=== PATIENT | male | born 1955 | race Hispanic/Latino ===

== ENCOUNTER 2017-01-20 13:31 | Emergency (ER) | payer SELFPAY ==
[2017-01-20] MEDS ORDERED: Milk Of Magnesia 30 ML UDCUP ONE (14:21)
[2017-01-20] MEDS ORDERED: Lidocaine Viscous Sol 2% 15 ml UD Cup ONE (14:21)
[2017-01-20 14:33] LABS: #Basophils 0.1 thou/uL (0.0-0.2); #Eosinphils 0.9 thou/uL (0.0-0.7); #Lymphocytes 1.4 thou/uL (1.20-3.40); #Monocytes 0.8 thou/uL (0.11-0.59); %Basophils 0.8 % (0.0-1.0); %Eosinophils 9.7 % (0.0-10.0); %Lymphocytes 15.1 % (21.0-51.0); %Monocytes 8.6 % (0.0-10.0); Red Blood Cell (RBC) Count 5.03 mill/uL (4.70-6.10); White Blood Cell (WBC) Count 9.1 thou/uL (4.8-10.8)
[2017-01-20 14:49] LABS: ALT (SGPT) 177 U/L (8-55); AST (SGOT) 117 U/L (5-34); Alkaline Phosphatase 406 U/L (40-150); Anion Gap 16 mmol/L (10-20); BUN (Urea Nitrogen) 23 mg/dL (8.4-25.7); Bilirubin, Total 1.7 mg/dL (0.2-1.2); CK (CPK) 100 U/L (30-200); Calc. Creatinine Clearance 0 mL/min (70-130); Calcium 9.8 mg/dL (7.8-10.44); Carbon Dioxide 24 mmol/L (23-31); Chloride 102 mmol/L (98-107); Estimated GFR-MDRD 70; Globulin 4.3 g/dL (2.4-3.5); Lipase 51 U/L (8-78); Protein, Total 8.1 g/dL (5.8-8.1)
[2017-01-20 14:49] LABS: Troponin I Less than 0.010 ng/mL (< 0.028)
--- NOTE | 2017-01-20 15:36 | RAD ---
ACUTE ABDOMINAL SERIES: 01/20/17 INDICATION: Epigastric abdominal pain. COMPARISON: None. FINDINGS: There is a small right pleural effusion with right basilar atelectasis. Heart size is within normal limits. Bowel gas pattern is unobstructed. There is a mild amount of retained stool within the colon. No acu te osseous abnormality is evident. There is scattered degenerative change. IMPRESSION: 1. Small right pleural effusion and right basilar atelectasis. Recommend correlation for any sy mptoms and signs of pneumonia. Two view chest radiograph may be helpful for further evaluation. 2. Mild amount of retained stool within the colon. POS: [facility]
--- NOTE | 2017-01-20 15:52 | ULT ---
RIGHT UPPER QUADRANT ULTRASOUND: History: Right Upper quadrant pain. FINDINGS: Gallbladder is incompletely distended without focal abnormality apparent. There is resultant thicken ing of the gallbladder wall. Common duct is 5.1 cm diameter. Liver is diffusely enlarged at 21 cm an d has a very heterogeneous echotexture, having the appearance of multiple hypoechoic masses, most ve ry small. No free fluid is evident within the right upper quadrant. A small amount of right pleural fluid is partially visualized. IMPRESSION: Abnormal appearance or the enlarged liver, favored to represent multiple hypoechoic masses. Metastat ic disease a primary concern. Please consider non-emergent CT of the abdomen and pelvis for better c haracterization. POS: [facility]
[2017-01-20 16:25] LABS: Bilirubin Small (Negative); Blood, Urine Negative (Negative); Glucose, Urine (Dipstick) Negative (Negative); Ketone, Urine Negative (Negative); Nitrite Negative (Negative); Protein, Urine (Dipstick) Negative (Neg-Trace)
[2017-01-20 16:28] LABS: Bacteria/HPF None Seen HPF (None Seen); Hyaline Casts/LPF 0-3 HYALINE CAST LPF (0-3 Hyaline); RBC/HPF 0-3 HPF (0-3); Squamous Epithelial None Seen HPF (0-3); WBC/HPF 0-3 HPF (0-3)
--- NOTE | 2017-01-20 16:35 | RAD ---
TWO VIEW CHEST 01/20/17 CLINICAL HISTORY: Epigastric and abdominal pain, progressive. FINDINGS: There is patchy opacification of the right perihilar region and right middle lung zone. There is doni vation of the right hemidiaphragm with obscuration of the lateral right costophrenic sulcus. The car diac silhouette is mildly enlarged and there is prominence of the pulmonary vasculature. There is os seous degenerative change. IMPRESSION: Patchy opacification of the right perihilar/right mid lung zone region. This may relate to an area o f edema, given the prominent cardiac silhouette and prominence of pulmonary vasculature. Developing subtle area of perihilar pneumonia not excluded. Blunting of the right costophrenic sulcus indicating small volume pleural fluid. POS: [facility]
== END 2017-01-20 17:11 | disposition home or self-care (01) ==
LOC: ERS 13:31
DX: K76.89 Other specified diseases of liver (principal); R16.0 Hepatomegaly, not elsewhere classified; I10 Essential (primary) hypertension
CPT/HCPCS: 71020; 74022; 76705; 80053; 81003; 81015; 82553; 83690; 84484; 85025; 93005; 96360